=== PATIENT | female | born 1980 | race Caucasian/White ===

== ENCOUNTER 2023-07-15 13:00 | Outpatient (CLI) | payer OTHER | END 2023-07-15 13:01 | disposition home or self-care (01) | LOC: BICMRI 13:00 | PROVIDERS: ATTEND Orthopaedic Surgery | DX: M23.92 Unspecified internal derangement of left knee (principal); T84.490A Other mechanical complication of muscle and tendon graft, initial encounter; S83.242A Other tear of medial meniscus, current injury, left knee, initial encounter; M25.762 Osteophyte, left knee; M94.262 Chondromalacia, left knee ==

== ENCOUNTER 2023-09-30 14:52 | Outpatient (CLI) | payer OTHER ==
[2023-09-30 17:12] LABS: #Basophils 0.1 10x3/uL (0.0-0.2); #Eosinphils 0.2 10x3/uL (0.0-0.5); #Monocytes 0.6 10x3/uL (0.0-1.1); #Neutrophils 4.6 10x3/uL (1.5-8.4); %Basophils 0.7 % (0.0-2.0); %Eosinophils 2.3 % (0.0-6.0); %Lymphocytes 35.6 % (18.0-47.0); %Monocytes 6.5 % (0.0-10.0); %Neutrophils 54.5 % (40.0-75.0); Hematocrit 40.4 % (34.9-44.5); Hemoglobin 13.6 g/dL (12.0-15.5); Mean Corpuscular HGB CONC 33.7 g/dL (32.0-36.0); Mean Corpuscular Hemoglobin 30.5 pg (27.0-33.0); Mean Corpuscular Volume 90.6 fl (81.6-98.3); Mean Platelet Volume 9.8 fl (7.4-10.4); Platelet Count 481 10x3/uL (150-450); RBC Distribution Width 13.4 % (11.5-14.5); Red Blood Cell (RBC) Count 4.46 10x6/uL (3.90-5.03); White Blood Cell (WBC) Count 8.4 10x3/uL (3.5-10.5)
[2023-09-30 17:20] LABS: INR-International Normal Ratio 0.9; Prothrombin Time 10.2 sec (9.5-12.1)
[2023-09-30 17:22] LABS: BHCG - Serum Negative (NEGATIVE); Pregs Control Background? CLEAR/WHITE (CLR/WHITE); Pregs Control Bar Appear? YES (CONTROL BAR)
[2023-09-30 17:22] LABS: Bilirubin Neg (Negative); Blood, Urine 150 (Negative); Clarity Clear (Clear); Glucose, Urine (Dipstick) Normal (Negative); Ketone, Urine Negative (Negative); Leukocyte Negative (Negative); Nitrite Negative (Negative); Protein, Urine (Dipstick) 15 mg/dl (Neg-Trace); Specific Gravity, Urine 1.025 (1.005-1.030); Urobilinogen Normal mg/dL (Less than 2)
[2023-09-30 17:28] LABS: Anion Gap 16 mmol/L (10-20); BUN (Urea Nitrogen) 14 mg/dL (7.0-18.7); Calc. Creatinine Clearance 0 mL/min (70-130); Calcium 8.6 mg/dL (7.8-10.44); Carbon Dioxide 18 mmol/L (22-29); Chloride 110 mmol/L (98-107); Estimated GFR 88; Glucose 75 mg/dL (70-105); Potassium 4.3 mmol/L (3.5-5.1); Sodium 140 mmol/L (136-145)
== END 2023-09-30 14:53 | disposition home or self-care (01) ==
LOC: LABBT 14:52
PROVIDERS: ATTEND Orthopaedic Surgery
DX: Z01.818 Encounter for other preprocedural examination (principal); M17.12 Unilateral primary osteoarthritis, left knee
CPT/HCPCS: 71046; 80048; 81003; 84703; 85025; 85610; 86850; 86900; 86901; 87081; 93005; 93010

== ENCOUNTER 2023-10-05 05:37 | Inpatient (IN) | payer OTHER ==
[2023-09-30 17:12] LABS: #Basophils 0.1 10x3/uL (0.0-0.2); #Eosinphils 0.2 10x3/uL (0.0-0.5); #Monocytes 0.6 10x3/uL (0.0-1.1); #Neutrophils 4.6 10x3/uL (1.5-8.4); %Basophils 0.7 % (0.0-2.0); %Eosinophils 2.3 % (0.0-6.0); %Lymphocytes 35.6 % (18.0-47.0); %Monocytes 6.5 % (0.0-10.0); %Neutrophils 54.5 % (40.0-75.0); Hematocrit 40.4 % (34.9-44.5); Hemoglobin 13.6 g/dL (12.0-15.5); Mean Corpuscular HGB CONC 33.7 g/dL (32.0-36.0); Mean Corpuscular Hemoglobin 30.5 pg (27.0-33.0); Mean Corpuscular Volume 90.6 fl (81.6-98.3); Mean Platelet Volume 9.8 fl (7.4-10.4); Platelet Count 481 10x3/uL (150-450); RBC Distribution Width 13.4 % (11.5-14.5); Red Blood Cell (RBC) Count 4.46 10x6/uL (3.90-5.03); White Blood Cell (WBC) Count 8.4 10x3/uL (3.5-10.5)
[2023-09-30 17:20] LABS: INR-International Normal Ratio 0.9; Prothrombin Time 10.2 sec (9.5-12.1)
[2023-09-30 17:22] LABS: BHCG - Serum Negative (NEGATIVE); Pregs Control Background? CLEAR/WHITE (CLR/WHITE); Pregs Control Bar Appear? YES (CONTROL BAR)
[2023-09-30 17:22] LABS: Bilirubin Neg (Negative); Blood, Urine 150 (Negative); Clarity Clear (Clear); Glucose, Urine (Dipstick) Normal (Negative); Ketone, Urine Negative (Negative); Leukocyte Negative (Negative); Nitrite Negative (Negative); Protein, Urine (Dipstick) 15 mg/dl (Neg-Trace); Specific Gravity, Urine 1.025 (1.005-1.030); Urobilinogen Normal mg/dL (Less than 2)
[2023-09-30 17:28] LABS: Anion Gap 16 mmol/L (10-20); BUN (Urea Nitrogen) 14 mg/dL (7.0-18.7); Calc. Creatinine Clearance 0 mL/min (70-130); Calcium 8.6 mg/dL (7.8-10.44); Carbon Dioxide 18 mmol/L (22-29); Chloride 110 mmol/L (98-107); Estimated GFR 88; Glucose 75 mg/dL (70-105); Potassium 4.3 mmol/L (3.5-5.1); Sodium 140 mmol/L (136-145)
[2023-10-05] MEDS ORDERED: Sodium Chloride 0.9% 100 ML ONE ×2 (06:14→07:07)
[2023-10-05] MEDS ORDERED: Vancomycin 1 GM/200 ML (FROZEN) BAG ONE (06:14)
[2023-10-05] MEDS ORDERED: Tranexamic Acid 1,000 MG/10 ML VIAL ONE ×2 (06:14→12:09)
[2023-10-05] MEDS ORDERED: Bupivacaine PF 0.5% 30 ML VIAL ONE ×2 (06:26→07:52)
[2023-10-05] MEDS ORDERED: fentaNYL PF 100 MCG/2 ML SYRINGE ONE ×2 (06:48→07:35)
[2023-10-05] MEDS ORDERED: PROPOFOL 20 ML ONE (06:48)
[2023-10-05] MEDS ORDERED: Midazolam HCl 2 mg/2 ml Vial ONE (06:48)
[2023-10-05] MEDS ORDERED: CEFAZOLIN 2 GM VIAL ONE (07:07)
[2023-10-05] MEDS ORDERED: Ropivacaine 0.2% 550 ML 550 ML NERVE BLCK SCH (07:45)
[2023-10-05] MEDS ORDERED: Zolpidem Tartrate 5 MG TAB PO PRN ×2 (07:45→10:13)
[2023-10-05] MEDS ORDERED: traMADol HCl 50 MG TAB PO PRN ×2 (07:45)
[2023-10-05] MEDS ORDERED: EPINEPHrine 1 MG/ML VIAL ONE (07:51)
[2023-10-05] MEDS ORDERED: Lidocaine 1% (PF) 30 ML VIAL ONE (07:52)
[2023-10-05] MEDS ORDERED: Ondansetron PF 4 MG/2 ML Vial ONE (08:14)
[2023-10-05] MEDS ORDERED: Metoclopramide HCl 10 MG (2 mL) VIAL ONE (08:14)
[2023-10-05] MEDS ORDERED: Dexamethasone 20 MG/5 ML VIAL ONE (08:14)
[2023-10-05] MEDS ORDERED: Ketorolac Tromethamine 30 MG (1 mL) VIAL ONE (08:19)
[2023-10-05] MEDS ORDERED: Ondansetron HCl/PF 4 MG/2 ML Vial IVP PRN (09:00)
[2023-10-05] MEDS ORDERED: HYDROmorphone 2 MG/ML VIAL SLOW IVP PRN (09:00)
[2023-10-05] MEDS ORDERED: Promethazine HCl 25 MG/ML VIAL IM PRN ×2 (09:00→10:13)
[2023-10-05] MEDS ORDERED: PHENYLEPHRINE-NS 100 MCG/ML 10 ML SYRINGE ONE (09:41)
[2023-10-05] MEDS ORDERED: fentaNYL 50 mcg/mL 1 mL Vial ONE (09:50)
[2023-10-05] MEDS ORDERED: Fentanyl 250 MCG/5 ML VIAL ONE (10:09)
[2023-10-05] MEDS ORDERED: Acetaminophen 325 MG TAB PO PRN (10:13)
[2023-10-05] MEDS ORDERED: Ondansetron PF 4 MG/2 ML Vial IVP PRN (10:13)
[2023-10-05] MEDS ORDERED: HYDROcodone/Acetaminophen 10/325 mg Tablet PO PRN (10:13)
[2023-10-05] MEDS ORDERED: diphenhydrAMINE 25 MG CAP PO PRN (10:13)
[2023-10-05] MEDS ORDERED: Tranexamic Acid 1,000 MG in Sodium Chloride 0.9% 100 ML IVPB SCH (10:15)
[2023-10-05] MEDS ORDERED: Albuterol 2.5 MG (3 mL) NEB NEB PRN (10:30)
[2023-10-05] MEDS: Acetaminophen 500 MG TAB PO SCH (14:00)
[2023-10-05] MEDS: Sodium Chloride 0.9% 1,000 ML IV SCH (14:00)
[2023-10-05] MEDS: fentaNYL 50 mcg/mL 1 mL Vial SLOW IVP PRN (14:18)
[2023-10-05 14:54] VITALS: BMI 25.8
[2023-10-05] MEDS ORDERED: CEFAZOLIN 2 GM in Sodium Chloride 0.9% 100 ML IVPB SCH (15:00)
[2023-10-05] MEDS: Ketorolac Tromethamine 30 MG (1 mL) VIAL IVP SCH ×2 (15:20→16:16)
[2023-10-05] MEDS: CEFAZOLIN 2 GM in Sodium Chloride 0.9% 100 ML IVPB SCH (16:14)
[2023-10-05] MEDS: oxyCODONE 5 MG TAB PO PRN (16:16)
[2023-10-05] MEDS: Vancomycin (BATCH) 1.5 GM in Premix 1 BAG IVPB SCH (18:11)
[2023-10-05] MEDS: Aspirin 81 mg Enteric Coated Tablet PO SCH (20:18)
[2023-10-05] MEDS: Ferrous Gluconate 324 MG TAB PO SCH (20:18)
[2023-10-05] MEDS: Senokot S 8.6-50 MG TAB PO SCH (20:18)
[2023-10-06] MEDS: oxyCODONE 5 MG TAB PO PRN (00:08)
[2023-10-06] MEDS: Ondansetron PF 4 MG/2 ML Vial IVP PRN (00:33)
[2023-10-06 05:45] LABS: Hematocrit 34.2 % (36.0-47.0); Hemoglobin 11.5 g/dL (12.0-16.0); Mean Corpuscular HGB CONC 33.6 g/dL (32.0-36.0); Mean Corpuscular Volume 92.2 fl (78.0-98.0); Mean Platelet Volume 9.6 fL (7.4-10.4); Platelet Count 337 10x3/uL (130-400); RBC Distribution Width 13.2 % (11.5-14.5); Red Blood Cell (RBC) Count 3.71 mill/uL (4.20-5.40); White Blood Cell (WBC) Count 13.4 10x3/uL (4.8-10.8)
[2023-10-06] MEDS: Promethazine HCl 25 MG/ML VIAL IM PRN (09:53)
[2023-10-06] MEDS: Multivitamin W/ Minerals 1 TAB PO SCH (10:54)
[2023-10-07 06:18] LABS: Hematocrit 31.4 % (36.0-47.0); Hemoglobin 10.6 g/dL (12.0-16.0); Mean Corpuscular HGB CONC 33.8 g/dL (32.0-36.0); Mean Corpuscular Hemoglobin 31.5 pg (27.0-31.0); Mean Corpuscular Volume 93.2 fl (78.0-98.0); Mean Platelet Volume 9.5 fL (7.4-10.4); Platelet Count 301 10x3/uL (130-400); RBC Distribution Width 13.6 % (11.5-14.5); Red Blood Cell (RBC) Count 3.37 mill/uL (4.20-5.40); White Blood Cell (WBC) Count 9.2 10x3/uL (4.8-10.8)
[2023-10-07] MEDS ORDERED: GASTROGRAFIN 30 ML BOT ONE (13:08)
[2023-10-07] MEDS ORDERED: Iopamidol-370 76% 500 ML MDV (1 ML CHARGE) ONE (13:08)
[2023-10-07] MEDS: Fleet Saline Enema 133 ML BOT PR SCH (15:02)
[2023-10-08 04:32] LABS: Hematocrit 30.5 % (36.0-47.0); Hemoglobin 10.2 g/dL (12.0-16.0); Mean Corpuscular HGB CONC 33.4 g/dL (32.0-36.0); Mean Corpuscular Hemoglobin 31.1 pg (27.0-31.0); Mean Platelet Volume 9.6 fL (7.4-10.4); Platelet Count 285 10x3/uL (130-400); RBC Distribution Width 13.3 % (11.5-14.5); Red Blood Cell (RBC) Count 3.28 mill/uL (4.20-5.40)
[2023-10-08 07:55] VITALS: BP 121/75; TEMP 97.7
== END 2023-10-08 10:03 | disposition home or self-care (01) | DRG 470 ==
LOC: SDC 05:37 → SURG A 13:56 → OBSVTOIN 10-06 13:40
PROVIDERS: ADMIT Orthopaedic Surgery; ATTEND Orthopaedic Surgery
PROC: 0SRD0J9 Replacement of Left Knee Joint with Synthetic Substitute, Cemented, Open Approach (ICD-10-PCS; principal; 2023-10-05)
PROC: 3E033XZ Introduction of Vasopressor into Peripheral Vein, Percutaneous Approach (ICD-10-PCS; 2023-10-05)
PROC: 0D9670Z Drainage of Stomach with Drainage Device, Via Natural or Artificial Opening (ICD-10-PCS; 2023-10-07)
DX: M17.12 Unilateral primary osteoarthritis, left knee (principal); K91.89 Other postprocedural complications and disorders of digestive system; K56.7 Ileus, unspecified; M23.92 Unspecified internal derangement of left knee; S83.512A Sprain of anterior cruciate ligament of left knee, initial encounter; S83.242A Other tear of medial meniscus, current injury, left knee, initial encounter; R11.2 Nausea with vomiting, unspecified; G89.18 Other acute postprocedural pain; J45.909 Unspecified asthma, uncomplicated; Z98.890 Other specified postprocedural states; R10.9 Unspecified abdominal pain
CPT/HCPCS: 36415; 74019; 74177; 80048; 81003; 84703; 85025; 85027; 85610; 86850; 86900; 86901; 87081; 96365; 96367; 96372; 96375; 96376; A4306; C1713; C1776; G0378; J0171; J0665; J1100; J1885; J2001; J2250; J2405; J2550; J2704; J2765; J2795; J3010; J3370; J3370-JW; J3490; J7050; Q9963; Q9967